=== PATIENT | female | born 1945 | race Caucasian/White ===

== ENCOUNTER 2017-01-22 05:50 | Emergency (ER) | payer BC ==
[~2017-01-22 05:50] MED LIST: APRES10B PO; ATEN50 PO; C5; COZAAR100 MG PO; DIL2TAB PO; FLAG500TAB PO; FLEX PO; HCTZ12.5 PO; HYDROCHLOROT12.5 MG PO; LEVAQUIN750 MG PO; LORT7 PO; MIRALAXPKT PO; MULTIVITAMI1 PO; NORV5 PO; OTC ANTIDIARRHEAL PO; OXYCOD PO; OXYIR5 MG PO; V5 PO; VITAMIN D1000 UNI1 PO; ZOFRAN ODT4 MG PO
[2017-01-22 05:51] LABS: BASOPHILS 0.1 %; BASOPHILS ABSOLUTE 0.01 10/3/uL (0.0-0.16); EOSINOPHILS 0 %; ER CBC TAT 0 Hrs 00 Mins; HEMATOCRIT 39.3 % (36.0-48.0); HEMOGLOBIN 13.6 g/dL (12.0-16.0); IMMATURE GRANULOCYTES 0.1 %; IMMATURE GRANULOCYTES ABSOLUTE 0.01 10/3/uL (0.0-0.11); LYMPHOCYTES ABSOLUTE 1.42 10/3/uL (0.67-4.30); MEAN CORPUS HGB CONC 34.6 g/dL (32.0-36.0); MEAN CORPUSCULAR HEMOGLOB 29.2 pg (26.0-34.0); MEAN PLATELET VOLUME 9.9 fL (9.2-13.0); MONOCYTES 5.1 %; MONOCYTES ABSOLUTE 0.45 10/3/uL (0.21-1.20); NEUTROPHILS 78.7 %; RBC DISTRIBUTION WIDTH 12.6 % (12.0-16.0); RED CELL COUNT 4.66 10/6/uL (4.0-5.6); WHITE BLOOD CELLS 8.9 10/3/uL (4.5-10.5)
[2017-01-22 05:54] LABS: MANUAL DIFF NO %; MEAN CORPUSCULAR VOLUME 84.3 fL (80-100); PLATELET COUNT 205 10/3/uL (150-400)
[2017-01-22 05:58] LABS: PARTIAL THROMBO TIME 27.6 SEC (22.5-37.2); PROTIME (NOT ORD) 13.5 SEC (12.0-14.5)
[2017-01-22 06:09] LABS: CHEST PAIN PROFILE TAT 0 Hrs 15 Mins; CHLORIDE, SERUM 99 MMOL/L (96-112); CO2 (CARBON DIOXIDE) 26 MMOL/L (24-34); CREATININE 0.91 MG/DL (0.55-1.02); GFR AFRICAN AMERICAN 73 ML/MIN (>=60); GFR NON AFRICAN AMERICAN 63 ML/MIN (>=60); POTASSIUM, SERUM 3.8 MMOL/L (3.5-5.3); SODIUM, SERUM 132 MMOL/L (135-148); TROPONIN I <0.02 NG/ML (<0.05)
[2017-01-22 06:12] LABS: BUN (BLOOD UREA NITROGEN) 21 MG/DL (6-23); GLUCOSE, SERUM 135 MG/DL (60-99)
[2017-01-22 06:13] LABS: CALCIUM, SERUM 9.6 MG/DL (8.5-10.4)
[2017-04-24] MEDS ORDERED: ATEN50 PO (23:02)
[2017-04-24] MEDS ORDERED: HYZAAR 50/12.51 TAB PO (23:03)
[2017-04-24] MEDS ORDERED: ZANAFLEX 4 MG TA4 MG PO (23:04)
[2017-04-24] MEDS ORDERED: TOPAMAX50 MG PO (23:04)
[2017-04-24] MEDS ORDERED: OXYCOD PO (23:05)
== END 2017-01-22 07:20 | disposition home or self-care (01) ==
LOC: ER 05:50
PROVIDERS: Specialist
DX: Z03.89 Encounter for observation for other suspected diseases and conditions ruled out (principal); I10 Essential (primary) hypertension; Z88.5 Allergy status to narcotic agent; Z88.6 Allergy status to analgesic agent; Z88.1 Allergy status to other antibiotic agents; Z88.8 Allergy status to other drugs, medicaments and biological substances; Z91.040 Latex allergy status; Z79.899 Other long term (current) drug therapy
CPT/HCPCS: 71010; 80048; 83735; 84484; 85025; 85610; 85730; 93005; 96372; 99284; J1170; J2360